=== PATIENT | female | born 1955 | race Caucasian/White ===

== ENCOUNTER 2016-12-10 02:14 | Emergency (ER) | payer BC, OTHER ==
[~2016-12-10] VITALS: Ht 147.3 cm; Wt 96.0 kg
[~2016-12-10 02:14] MED LIST: VITAMINS
[2016-12-10 02:18] VITALS: Ht 147.3 cm; Wt 96.0 kg
--- NOTE | 2016-12-10 02:49 | ERD ---
ER Documentation Chief Complaint Date/Time DATE: 12/10/16 TIME: 02:47 Chief Complaint lower back pain radiating to left leg x 3 days. hx of sciatica HPI 61-year-old female presents to emergency department for complaints of left lower back pain radiating to the left lower leg for the last 3 days. Patient has history of sciatica, has had this pain chronically. Patient took some Tylenol for pain with only mild relief. Patient denies any injury in the past. Patient denies any incontinence. Patient denies any fever or chills. Patient denies hematuria or dysuria. Patient denies any numbness or tingling ROS All systems reviewed and are negative except as per history of present illness. Medications Home Meds Reported Medications [Vitamins] No Conflict Check 05/26/11 Allergies Allergies: Coded Allergies: aspirin (Verified Allergy, Mild, 12/10/16) cephalexin (Verified Allergy, Mild, 12/10/16) codeine (Verified Allergy, Mild, 12/10/16) PMhx/Soc History of Surgery: Yes (APPENDECTOMY 10YRS, TONSILS, left hand plastic surgery ) Anesthesia Reaction: No Hx Neurological Disorder: No Hx Respiratory Disorders: No Hx Cardiac Disorders: No Hx Psychiatric Problems: No Hx Miscellaneous Medical Probl: Yes (SLEEP APNEA, sciatica) Hx Alcohol Use: Yes (occasional) Hx Substance Use: No Hx Tobacco Use: No Smoking Status: Never smoker FmHx Family History: No coronary disease, No diabetes, No other Physical Exam Vitals Vital Signs Date Time Temp Pulse Resp B/P Pulse Ox O2 Delivery O2 Flow Rate FiO2 12/10/16 02:18 97.9 93 20 143/66 99 Physical Exam GENERAL: The patient is well developed and appropriate for usual state of health, in no apparent distress. CHEST: Clear to auscultation bilaterally. There are no rales, wheezes or rhonchi. HEART: Regular rate and rhythm. No murmurs, clicks, rubs or gallops. No S3 or S4. ABDOMEN: Soft, nontender and nondistended. Good bowel sounds. No rebound or guarding. No gross peritonitis. No gross organomegaly or masses. No Batista sign or McBurney point tenderness. BACK: No midline or flank tenderness. Left straight leg test positive. EXTREMITIES: Equal pulses bilaterally. There is no peripheral clubbing, cyanosis or edema. No focal swelling or erythema. Full range of motion. Grossly neurovascularly intact. NEURO: Alert and oriented. Cranial nerves 2-12 intact. Motor strength in all 4 extremities with 5/5 strength. Sensation grossly intact. Normal speech and gait. SKIN: There is no apparent rash or petechia. The skin is warm and dry. HEMATOLOGIC AND LYMPHATIC: There is no evidence of excessive bruising or lymphedema. No gross cervical, axillary, or inguinal lymphadenopathy. Results 24 hrs Current Medications Medications (Trade) Dose Ordered Sig/[place] Route PRN Reason Start Time Stop Time Status Last Admin Dose Admin Tramadol HCl (Ultram) 50 mg ONCE ONCE PO 12/10/16 03:00 12/10/16 03:01 DC 12/10/16 02:43 Acetaminophen/ Hydrocodone Bitart ([place] (10/325)) 1 tab ONCE ONCE PO 12/10/16 04:00 12/10/16 04:01 12/10/16 03:43 Ondansetron HCl (Zofran Odt) 4 mg ONCE STAT ODT 12/10/16 03:37 12/10/16 03:39 DC 12/10/16 03:42 Patient was given medication for pain here in emergency department, after treatment, patient verbalized feeling much better. Patient's pain is improved. PROCEDURE: CT lumbar spine without contrast CLINICAL INDICATION: Left low back pain TECHNIQUE: CT scan of the lumbar spine was performed on a high-resolution multi-detector CT scanner. No IV contrast was administered. Coronal and sagittal reformatted images were obtained from the axial source images. Images were reviewed on a high-resolution PACS workstation. Exam CTDI = 38.4 mGy and the DLP = 1414.11 mGy-cm. One or more of the following dose reduction techniques were used: - Automated exposure control. - Adjustment of the mA and/or kV according to patient size. - Use of iterative reconstruction technique. COMPARISON: None available FINDINGS: There is preservation of the normal lumbar lordosis. Alignment remains intact. No acute fracture or dislocation is seen. The vertebral body heights are all well preserved. There is mild disk space narrowing at L5-S1. There is approximate 1 mm retrolisthesis of L5 vertebral body on S1 consistent with degenerative changes. Mild facet hypertrophy seen at L2-3, L3-4 and L5-S1. There is facet arthropathy at L4-5. At L4-5 there is diffuse disk bulge, vertebral body osteophytes and ligamentum flavum hypertrophy and mild left foraminal stenosis and moderate right foraminal stenosis. At L5-S1 there is diffuse disk bulge and mild vertebral body osteophytes and mild bilateral foraminal stenosis and appearance of mild left posterior disk protrusion with mild displacement of the left S1 nerve root. Mild degenerative changes at sacroiliac joints. Calcification in abdominal aorta. Calcifications in the right kidney which could represent vascular calcifications or nonobstructing calculi. IMPRESSION: No acute fracture or dislocation is seen. Lumbar spondylosis as noted above. Mild left posterior L5-S1 disk protrusion. Foraminal stenosis as noted above. Please see above. RPTAT: HJES .Joaquim Eddy MD, MD Date Time Electronically viewed and signed by .Joaquim Eddy MD, MD on 12/10/2016 03:54 .S/ Procedures/MDM Medical Decision Making: Patient's pain is most likely consistent with a degenerative disc disease, sciatica. There is no suspicion for neurovascular compromise. Patient has intact sensation and circulation of the affected extremity. There is low suspicion for septic arthritis. Patient does not have any fever. Radiology exams of the affected area does not show any fracture or dislocation. Disposition: Home. Patient is given prescription for [place] for severe pain, gabapentin for sciatica. Patient was advised to elevate the affected area and apply ice on affected area. Patient was advised that if symptoms are worse, numbness, tingling, high fever, unable to move joint, worsening symptoms, to return to emergency department immediately. Otherwise, patient is advised to follow up with the primary care doctor in 5-7 days for reevaluation of symptoms. Departure Diagnosis: Primary Impression: Back pain Back pain location: low back pain Chronicity: acute Back pain laterality: bilateral Sciatica presence: without sciatica Qualified Code: M54.5 - Acute bilateral low back pain without sciatica Additional Impression: Degenerative disc disease Spinal region: lumbosacral Qualified Code: M51.37 - Degeneration of intervertebral disc of lumbosacral region Condition: Stable Patient Instructions: Back Pain W/ Sciatica, Degenerative Disk Disease Additional Instructions: Patient is given prescription for [place] for severe pain, gabapentin for sciatica. Patient was advised to elevate the affected area and apply ice on affected area. Patient was advised that if symptoms are worse, numbness, tingling, high fever, unable to move joint, worsening symptoms, to return to emergency department immediately. Otherwise, patient is advised to follow up with the primary care doctor in 5-7 days for reevaluation of symptoms. MODESTA MONROY NP Dec 10, 2016 02:49
[2016-12-10] MEDS ORDERED: traMADol 50 MG TAB PO ONE (03:00)
[2016-12-10] MEDS ORDERED: ONDANSETRON (ODT) 4 MG TAB ODT STA (03:37)
--- NOTE | 2016-12-10 03:55 | RADRPT ---
PROCEDURE: CT lumbar spine without contrast CLINICAL INDICATION: Left low back pain TECHNIQUE: CT scan of the lumbar spine was performed on a high-resolution multi-detector CT scanne r. No IV contrast was administered. Coronal and sagittal reformatted images were obtained from the axial source images. Images were reviewed on a high-resolution PACS workstation. Exam CTDI = 38.4 mGy and the DLP = 1414.11 mGy-cm. One or more of the following dose reduction techniques were used: - Automated exposure control. - Adjustment of the mA and/or kV according to patient size. - Use of iterative reconstruction technique. COMPARISON: None available FINDINGS: There is preservation of the normal lumbar lordosis. Alignment remains intact. No acute fracture o r dislocation is seen. The vertebral body heights are all well preserved. There is mild disk space narrowing at L5-S1. There is approximate 1 mm retrolisthesis of L5 vertebral body on S1 consistent with degenerative changes. Mild facet hypertrophy seen at L2-3, L3-4 and L5-S1. There is facet arthr opathy at L4-5. At L4-5 there is diffuse disk bulge, vertebral body osteophytes and ligamentum flavu m hypertrophy and mild left foraminal stenosis and moderate right foraminal stenosis. At L5-S1 ther e is diffuse disk bulge and mild vertebral body osteophytes and mild bilateral foraminal stenosis an d appearance of mild left posterior disk protrusion with mild displacement of the left S1 nerve root . Mild degenerative changes at sacroiliac joints. Calcification in abdominal aorta. Calcifications in the right kidney which could represent vascular calcifications or nonobstructing calculi. IMPRESSION: No acute fracture or dislocation is seen. Lumbar spondylosis as noted above. Mild left posterior L5 -S1 disk protrusion. Foraminal stenosis as noted above. Please see above. RPTAT: HJES .Joaquim Eddy MD, MD Date Time Electronically viewed and signed by .Joaquim Eddy MD, on 12/10/2016 03:54 .S/
[2016-12-10] MEDS ORDERED: HYDROCODONE/APAP (10/325) TAB PO ONE (04:00)
[2016-12-10] MEDS ORDERED: ONDA4TAB14 PO (04:02)
[2016-12-10] MEDS ORDERED: HYDR-902 PO (04:02)
[2016-12-10] MEDS ORDERED: GABA300C16 PO (04:02)
[2016-12-10 04:32] VITALS: BP 138/70; PULSE 77; RESP 18; TEMP 98.2
== END 2016-12-10 04:33 | disposition home or self-care (01) ==
LOC: EEVIPCON 02:14 → FTE 02:14
DX: M54.5 Low back pain (principal); M51.37 Other intervertebral disc degeneration, lumbosacral region
CPT/HCPCS: 72131

== ENCOUNTER 2017-05-25 19:08 | Emergency (ER) | payer BC ==
[~2017-05-25] VITALS: Ht 147.3 cm; Wt 101.5 kg
[~2017-05-25 19:08] MED LIST changes: +GABA300C16 PO; +HYDR-902 PO; +ONDA4TAB14 PO
[2017-05-25 19:46] VITALS: Ht 147.3 cm; Wt 101.5 kg
[2017-05-25] MEDS ORDERED: LORAZEPAM 1 MG TAB PO ONE (23:00)
--- NOTE | 2017-05-25 23:38 | ERD ---
ER Documentation Chief Complaint Date/Time DATE: 05/25/17 TIME: 23:27 Chief Complaint palpitations x 1 week "fluttering since yesterday" HPI 62-year-old female with a history of obstructive sleep apnea on CPAP at night presenting with 1 week of "fluttering" in her chest. It happens mostly when she lays down. Yesterday it was all day. Today it has been on and off. She denies any associated pain in her chest, shortness of breath, dizziness, vision disturbance, nausea, vomiting, fever, chills. She does admit she has been stressed out lately due to her son's financial issues. She denies any recent travel, immobilization, surgeries, or history of blood clots. ROS All systems reviewed and are negative except as per history of present illness. Medications Home Meds Active Scripts Gabapentin* (Gabapentin*) 300 Mg Capsule, 300 MG PO BID, #60 CAP Prov:MODESTA MONROY CHEMICAL MIXER 12/10/16 Reported Medications Biotin (Biotin) 10,000 Mcg Capsule, 62271 MCG PO, CAP 05/26/17 Pyridoxine Hcl (Vitamin B6) 100 Mg/Ml Soln, 100 MG IJ 05/26/17 Cholecalciferol (Vitamin D3) 5,000 Unit Tablet, 5000 UNIT PO DAILY, TAB 05/26/17 Magnesium Oxide (Magnesium) 500 Mg Capsule, 500 MG PO, CAP 05/26/17 Levocetirizine Dihydrochloride (LEVOCETIRIZINE DIHYDROCHLORIDE) 5 Mg Tablet, 5 MG PO DAILY, #30 TAB 05/26/17 Progesterone,Micronized* (Progesterone*) 100 Mg Capsule, 100 MG PO HS, CAP 05/26/17 Ibuprofen* (Ibuprofen*) 800 Mg Tab, 800 MG PO TID, TAB 05/26/17 Discontinued Reported Medications [Vitamins] No Conflict Check 05/26/11 Discontinued Scripts Ondansetron (Ondansetron Odt) 4 Mg Tab.rapdis, 4 MG PO Q8 Y for NAUSEA AND/OR VOMITING, #30 TAB Prov:MODESTA MONROY CHEMICAL MIXER 12/10/16 Hydrocodone/Acetaminophen ([place] 10-325 Tablet) 1 Each Tablet, 1 TAB PO Q6H Y for PAIN, #20 TAB Prov:MODESTA MONROY CHEMICAL MIXER 12/10/16 Allergies Allergies: Coded Allergies: aspirin (Verified Allergy, Mild, 05/25/17) cephalexin (Verified Allergy, Mild, 05/25/17) codeine (Verified Allergy, Mild, 05/25/17) PMhx/Soc History of Surgery: Yes (appendectomy) Anesthesia Reaction: No Hx Neurological Disorder: No Hx Respiratory Disorders: No Hx Cardiac Disorders: No Hx Psychiatric Problems: No Hx Miscellaneous Medical Probl: Yes (herniated disc, sciatica) Hx Alcohol Use: No Hx Substance Use: No Hx Tobacco Use: No Smoking Status: Never smoker FmHx Family History: No coronary disease, No diabetes Physical Exam Vitals Vital Signs Date Time Temp Pulse Resp B/P Pulse Ox O2 Delivery O2 Flow Rate FiO2 05/26/17 01:18 70 16 144/69 98 Room Air 05/26/17 00:15 Nasal Cannula 05/25/17 22:38 77 16 158/69 98 Room Air 05/25/17 19:46 98.1 79 20 135/67 94 Physical Exam Const: Well-appearing, no apparent distress, laying comfortably in rney Head: Atraumatic Eyes: Normal Conjunctiva ENT: Normal External Ears, Nose and Mouth. Neck: Full range of motion..~ No meningismus. No JVD Resp: Clear to auscultation bilaterally Cardio: Regular rate and rhythm, no murmurs Abd: Soft, protuberant abdomen, non tender.. Normal bowel sounds Skin: No petechiae or rashes Back: No midline or flank tenderness Ext: No cyanosis, or edema Neur: Awake and alert Psych: Normal Mood and Affect Result Diagram: 05/25/17 2325 05/25/17 2325 Results 24 hrs Laboratory Tests Test 05/25/17 23:25 White Blood Count 9.310^3/ul Red Blood Count 4.9710^6/ul Hemoglobin 15.5g/dl Hematocrit 45.0% Mean Corpuscular Volume 90.5fl Mean Corpuscular Hemoglobin 31.2pg Mean Corpuscular Hemoglobin Concent 34.4g/dl Red Cell Distribution Width 12.3% Platelet Count 00898^3/UL Mean Platelet Volume 11.6fl Neutrophils % 62.6% Lymphocytes % 24.7% Monocytes % 6.8% Eosinophils % 5.0% Basophils % 0.5% Nucleated Red Blood Cells % 0.0/100WBC Neutrophils # 5.810^3/ul Lymphocytes # 2.310^3/ul Monocytes # 0.610^3/ul Eosinophils # 0.510^3/ul Basophils # 0.110^3/ul Nucleated Red Blood Cells # 0.010^3/ul Sodium Level 139mmol/L Potassium Level 4.6mmol/L Chloride Level 99mmol/L Carbon Dioxide Level 24mmol/L Anion Gap 21 Blood Urea Nitrogen 23mg/dl Creatinine 0.73mg/dl Glucose Level 107mg/dl Calcium Level 10.3mg/dl Troponin I < 0.012ng/ml Current Medications Medications (Trade) Dose Ordered Sig/[place] Route PRN Reason Start Time Stop Time Status Last Admin Dose Admin Lorazepam (Ativan) 1 mg ONCE ONCE PO 05/25/17 23:00 05/25/17 23:01 DC 05/25/17 23:39 Procedures/MDM EKG: Rate/Rhythm: Normal Sinus Rhythm QRS, ST, T-waves: No changes consistent w/ acute ischemia Impression: No evidence of ischemia or arrhythmia Chest x-ray: Mild failure Labs CBC: no anemia or evidence of infection BMP: Elevation of BUN, normal creatinine, no evidence of electrolyte abnormality or hypoglycemia Troponin within normal limits MDM Patient is presenting with 1 week of fluttering in her chest. She is hemodynamically stable and afebrile. Upon presentation her O2 sat was noted to be 94% on room air but when I saw her was 99% on room air. I have a low suspicion for pulmonary embolism, acute coronary syndrome, aortic dissection, or pneumonia. She does have a history of obstructive sleep apnea, which is likely causing the mild failure seen on her chest x-ray. However I do not think her symptoms are secondary to acute CHF. I gave the patient 1 dose of oral Ativan 1 mg with resolution of her symptoms. I discussed her results with her. I told her to increase her oral hydration as her BUN was elevated. I recommended she call her primary care doctor tomorrow, Dr. Nova, to schedule follow-up appointment to discuss her results from today and her symptoms. Patient is appropriate for continued outpatient follow-up and workup. Patient was discharged in a stable condition. Departure Diagnosis: Primary Impression: Palpitations Additional Impression: Pulmonary vascular congestion Condition: Stable EKCHENCHO FITZGERALD MD May 25, 2017 23:37
--- NOTE | 2017-05-25 23:43 | RADRPT ---
PROCEDURE: XR Chest. CLINICAL INDICATION: Chest pain. TECHNIQUE: Single frontal view of the chest. COMPARISON: None. FINDINGS: Cardiomegaly with pulmonary vascular congestion and bilateral patchy lung base air space disease. No signs of pleural fluid or pneumothorax are seen. The osseous structures and soft tissues are unrema rkable. IMPRESSION: Mild failure. RPTAT: [facility] Physician Magalie Date Time Electronically viewed and signed by Physician Magalie on 05/25/2017 23:43 RS/
[2017-05-25 23:49] LABS: ADD SCAN DIFF NO
[2017-05-25 23:56] LABS: BASOPHIL # 0.1 10^3/ul (0.0-0.1); BASOPHILS % 0.5 % (0.0-2.0); EOSINOPHILS # 0.5 10^3/ul (0.0-0.5); HEMOGLOBIN 15.5 g/dl (12.0-16.0); LYMPHOCYTES # 2.3 10^3/ul (0.8-2.9); LYMPHOCYTES % 24.7 % (15.0-51.0); MEAN CORPUSCULAR HEMOGLOBIN 31.2 pg (29.0-33.0); MEAN CORPUSCULAR HGB CONC 34.4 g/dl (32.0-37.0); MEAN CORPUSCULAR VOLUME 90.5 fl (82.0-101.0); MEAN PLATELET VOLUME 11.6 fl (7.4-10.4); MONOCYTE # 0.6 10^3/ul (0.3-0.9); MONOCYTES % 6.8 % (0.0-11.0); NEUTROPHIL # 5.8 10^3/ul (1.6-7.5); NEUTROPHILS % 62.6 % (39.0-77.0); PLATELET COUNT 235 10^3/UL (140-415); RED BLOOD COUNT 4.97 10^6/ul (4.20-5.40); RED CELL DISTRIBUTION WIDTH 12.3 % (11.5-14.5); WHITE BLOOD COUNT 9.3 10^3/ul (4.8-10.8)
[2017-05-26 00:12] LABS: ANION GAP 21 (8-16); BLOOD UREA NITROGEN 23 mg/dl (7-20); CALCIUM 10.3 mg/dl (8.4-10.2); CARBON DIOXIDE 24 mmol/L (21-31); CHLORIDE 99 mmol/L (97-110); CREATININE 0.73 mg/dl (0.44-1.00); GLUCOSE 107 mg/dl (70-220); POTASSIUM 4.6 mmol/L (3.5-5.1); SODIUM 139 mmol/L (135-144)
[2017-05-26 00:30] LABS: TROPONIN-I < 0.012 ng/ml (0.00-0.12)
[2017-05-26] MEDS ORDERED: LEVO5TAB PO (00:50)
[2017-05-26] MEDS ORDERED: PROG100C5 PO (00:50)
[2017-05-26] MEDS ORDERED: MAGN500C PO (00:50)
[2017-05-26] MEDS ORDERED: IBUP800T25 PO (00:50)
[2017-05-26] MEDS ORDERED: BIOT10002 PO (01:02)
[2017-05-26] MEDS ORDERED: PYR100I IJ (01:02)
[2017-05-26] MEDS ORDERED: CHOL500010 PO (01:02)
[2017-05-26 01:18] VITALS: BP 144/69; PULSE 70; RESP 16
== END 2017-05-26 01:19 | disposition home or self-care (01) ==
LOC: E/R 19:08
DX: R00.2 Palpitations (principal); R09.89 Other specified symptoms and signs involving the circulatory and respiratory systems; R40.2142 Coma scale, eyes open, spontaneous, at arrival to emergency department; R40.2252 Coma scale, best verbal response, oriented, at arrival to emergency department; R40.2362 Coma scale, best motor response, obeys commands, at arrival to emergency department
CPT/HCPCS: 36415; 71010; 80048; 84484; 85025; 93005

== ENCOUNTER 2017-05-30 16:24 | Emergency (ER) | payer BC ==
[~2017-05-30] VITALS: Ht 147.3 cm; Wt 98.9 kg
[~2017-05-30 16:24] MED LIST changes: +BIOT10002 PO; +CHOL500010 PO; -HYDR-902 PO; +IBUP800T25 PO; +LEVO5TAB PO; +MAGN500C PO; -ONDA4TAB14 PO; +PROG100C5 PO; +PYR100I IJ; -VITAMINS
[2017-05-30 16:28] VITALS: Ht 147.3 cm; Wt 98.9 kg
--- NOTE | 2017-05-30 18:26 | ERD ---
ER Documentation Chief Complaint Date/Time DATE: 05/30/17 TIME: 18:23 Chief Complaint PT with palpitations X 6 days, here Weds for same complaint. HPI 62-year-old woman with continued complaints of palpitations on a daily basis. She has had symptoms for 1 week, she was worked up here in this ED a few days ago and workup was unremarkable. She states she called her doctor's office this morning for an appointment although secretarial staff referred her to the ED. She denies chest pain, no calf or leg swelling, no shortness of breath, no fevers or chills, no vomiting or diarrhea. ROS All systems reviewed and are negative except as per history of present illness. Medications Home Meds Active Scripts Gabapentin* (Gabapentin*) 300 Mg Capsule, 300 MG PO BID, #60 CAP Prov:MODESTA MONROY LOCOMOTIVE INSPECTOR 12/10/16 Reported Medications Biotin (Biotin) 10,000 Mcg Capsule, 67788 MCG PO, CAP 05/26/17 Pyridoxine Hcl (Vitamin B6) 100 Mg/Ml Soln, 100 MG IJ 05/26/17 Cholecalciferol (Vitamin D3) 5,000 Unit Tablet, 5000 UNIT PO DAILY, TAB 05/26/17 Magnesium Oxide (Magnesium) 500 Mg Capsule, 500 MG PO, CAP 05/26/17 Levocetirizine Dihydrochloride (LEVOCETIRIZINE DIHYDROCHLORIDE) 5 Mg Tablet, 5 MG PO DAILY, #30 TAB 05/26/17 Progesterone,Micronized* (Progesterone*) 100 Mg Capsule, 100 MG PO HS, CAP 05/26/17 Ibuprofen* (Ibuprofen*) 800 Mg Tab, 800 MG PO TID, TAB 05/26/17 Discontinued Reported Medications [Vitamins] No Conflict Check 05/26/11 Discontinued Scripts Ondansetron (Ondansetron Odt) 4 Mg Tab.rapdis, 4 MG PO Q8 Y for NAUSEA AND/OR VOMITING, #30 TAB Prov:MODESTA MONROY LOCOMOTIVE INSPECTOR 12/10/16 Hydrocodone/Acetaminophen ([place] 10-325 Tablet) 1 Each Tablet, 1 TAB PO Q6H Y for PAIN, #20 TAB Prov:MODESTA MONROY LOCOMOTIVE INSPECTOR 12/10/16 Allergies Allergies: Coded Allergies: aspirin (Verified Allergy, Mild, 05/25/17) cephalexin (Verified Allergy, Mild, 05/25/17) codeine (Verified Allergy, Mild, 05/25/17) PMhx/Soc Obesity, hypertension, History of Surgery: Yes (appendectomy) Anesthesia Reaction: No Hx Neurological Disorder: No Hx Respiratory Disorders: No Hx Cardiac Disorders: No Hx Psychiatric Problems: No Hx Miscellaneous Medical Probl: Yes (herniated disc, sciatica) Hx Alcohol Use: No Hx Substance Use: No Hx Tobacco Use: No Smoking Status: Never smoker FmHx Family History: No diabetes Physical Exam Vitals Vital Signs Date Time Temp Pulse Resp B/P Pulse Ox O2 Delivery O2 Flow Rate FiO2 05/30/17 19:37 97.1 82 16 143/79 97 Room Air 05/30/17 16:28 98.9 104 18 146/84 95 Physical Exam GENERAL: Well-developed, well-nourished, well-hydrated, in no apparent distress , looks nontoxic in appearance HEENT: Moist mucous membranes, pink conjunctiva, no cervical spine tenderness or step-off deformities, no goiter, no jaundice or icterus, extraocular movements intact without pain. No submandibular induration, and no pharyngeal erythema NEURO: Alert and oriented 3, cranial nerves II through XII intact bilaterally, pupils equal round reactive to light, no focal deficits or facial asymmetry, sensation intact distally Strength 5/5 in upper and lower extremities bilaterally CARDIAC: Regular rate and rhythm, no murmurs rubs or gallops LUNGS: Clear bilaterally no wheezing crackles or stridor ABDOMEN: Soft nontender, no guarding, no rigidity, no rebound, no psoas sign no obturator sign. Normoactive bowel sounds SKIN: Warm and dry to touch, no abrasions, contusions, or hematomas, no lacerations, no ecchymosis, no target lesions, and without ulcers EXTREMITIES: No clubbing cyanosis or edema, calves are bilaterally symmetrical, no Homans sign, no popliteal cord sign. Distal pulses equal and bilateral PSYCH: Normal affect without agitation or irritability Results 24 hrs Laboratory Tests Test 05/30/17 18:40 B-Type Natriuretic Peptide 24PG/ML Current Medications Medications (Trade) Dose Ordered Sig/[place] Route PRN Reason Start Time Stop Time Status Last Admin Dose Admin Lorazepam (Ativan) 0.5 mg ONCE ONCE PO 05/30/17 18:30 05/30/17 18:31 DC 05/30/17 18:21 Procedures/MDM Patient was placed on caster helper rhythm strip revealed a sinus rhythm at 90 bpm with upright P and T waves. Patient was afebrile. EKG performed, read by me: 98 bpm, normal sinus rhythm, normal axis, no acute ST segment changes, narrow QRS complex, with good R-wave progression in precordial leads. I administered lorazepam 0.5 mg p.o. with good effect. Patient symptoms improved although did not resolve. Chest X-ray 1V Interpreted by me: Soft Tissue: No acute abnormalities Bones: No acute abnormalities Mediastinum/Cardiac Silhouette/Lungs: No acute abnormalities BNP was negative Reviewed recent medical records, imaging, and labs were all unremarkable. I spoke to Dr. SNOW who agreed to follow-up with the patient tomorrow morning in her office. We agree there is no indication for any acute intervention, imaging , or admission at this time. Differential diagnoses considered, included but not limited to acute coronary syndrome, pulmonary embolism, aortic dissection, abdominal aortic aneurysm, sepsis, stroke, meningitis, encephalitis, pneumonia, appendicitis, cholecystitis , bowel obstruction, pyelonephritis, nephrolithiasis, cystitis, as well as metabolic, hematologic, and electrolyte abnormalities. As well as abscess, cellulitis, fractures, and dislocations. Patient feels much better at this time, and vital signs are normal, symptoms have improved. I did give strict instructions to return to the ED if symptoms continue or worsen, patient will otherwise follow-up with primary care physician. Patient understood instructions and agreed to plan. Disclaimer: Inadvertent spelling and grammatical errors are likely due to EHR/ dictation software use and do not reflect on the overall quality of patient care. Also, please note that the electronic time recorded on this note does not necessarily reflect the actual time of the patient encounter. Departure Diagnosis: Primary Impression: Palpitations Condition: Good CARINE SALAS MD May 30, 2017 18:26
[2017-05-30] MEDS ORDERED: LORAZEPAM 0.5 MG TAB PO ONE (18:30)
[2017-05-30 19:37] VITALS: BP 143/79; PULSE 82; RESP 16; TEMP 97.1
--- NOTE | 2017-05-30 19:45 | RADRPT ---
PROCEDURE: Chest Radiograph. CLINICAL INDICATION: Cough TECHNIQUE: Single frontal chest radiograph. COMPARISON: None available FINDINGS: The cardiomediastinal silhouette is within normal limits. No infiltrate or effusion is seen. Th e bones are intact. IMPRESSION: 1. Unremarkable chest radiograph. RPTAT: HJBF .Vel Londono MD, MD Date Time Electronically viewed and signed by .Vel Londono MD, on 05/30/2017 19:45 .B/
== END 2017-05-30 19:38 | disposition home or self-care (01) ==
LOC: E/R 16:24
DX: R00.2 Palpitations (principal); I10 Essential (primary) hypertension; E66.9 Obesity, unspecified; Z68.42 Body mass index [BMI] 45.0-49.9, adult
CPT/HCPCS: 71010; 83880; 93005